=== PATIENT | female | born 1965 | race American Indian/Alaskan Native ===

== ENCOUNTER 2016-07-19 12:33 | Outpatient (CLI) | payer MEDICAID ==
--- NOTE | 2016-07-19 13:44 | Mammography Report ---
Right mammogram: Routine views are compared to her prior study of December 13, 2015. Scattered areas of chunky benign-appearing calcifications are noted. No significant change identified compared to prior study. The overall fibroglandular pattern remains stable. No focal findings. Impression: Stable calcifications. No suspicious findings. Recommendation: Annual bilateral mammogram followup at normal interval in 6 months. BI-RADS CATEGORY: 3 = Probably benign ACR BI-RADS MAMMOGRAPHIC CODES: 0 = Needs additional imaging evaluation; 1 = Negative; 2 = Benign; 3 = Probably benign; 4 = Suspicious; 5 = Malignant; 6 = Known biopsy-proven malignancy COMMENT: 1. Dense breast tissue, i.e., adenosis, fibrocystic changes, etc., may obscure an underlying neoplasm. 2. Approximately 10% of cancers are not detected with mammography. 3. A negative mammography report should not delay biopsy if a clinically suspicious mass is present.
== END 2016-07-19 12:34 | disposition home or self-care (01) ==
LOC: MAMMO 12:33
PROVIDERS: ATTEND Family Medicine
DX: R92.8 Other abnormal and inconclusive findings on diagnostic imaging of breast (principal)
CPT/HCPCS: G0206-RT

== ENCOUNTER 2017-02-19 11:14 | Outpatient (CLI) | payer MEDICAID ==
--- NOTE | 2017-02-19 14:22 | Mammography Report ---
BILATERAL DIGITAL SCREENING MAMMOGRAM with CAD : 02/19/17 11:14:00 CLINICAL: Routine screening. COMPARISON:12/13/15 FINDINGS: The breasts are heterogeneously dense, which may obscure small masses.Bilateral benign calcifications. No mass, architectural distortion or suspicious calcifications. IMPRESSION: No mammographic evidence of malignancy. BI-RADS CATEGORY: 2 -- Benign RECOMMENDATION: Routine mammographic screening in one year.
== END 2017-02-19 11:15 | disposition home or self-care (01) ==
LOC: MAMMO 11:14
PROVIDERS: ATTEND Family Medicine
DX: Z12.31 Encounter for screening mammogram for malignant neoplasm of breast (principal)
CPT/HCPCS: 77067; G0202

== ENCOUNTER 2018-11-22 07:36 | Day surgery (SDC) | payer MEDICAID ==
[2018-11-22] MEDS ORDERED: ECOTRIN PO ONE (08:11)
[2018-11-22] MEDS: NACL 0.9% 500 ML 500 ML IV SCH ×2 (08:59→10:10)
[2018-11-22 09:05] LABS: Basophils % (Auto) 0.4 % (0.0-1.8); Eosinophils # (Auto) 0.2 K/mm3 (0.0-0.4); Eosinophils % (Auto) 2.8 % (0.0-4.3); Hematocrit 36.7 % (30.3-42.9); Hemoglobin 12.4 gm/dl (10.1-14.3); Lymphocytes # (Auto) 2.1 K/mm3 (1.2-5.4); Lymphocytes % (Auto) 35.5 % (13.4-35.0); Mean Corpuscular HGB Conc 34 % (30-34); Mean Corpuscular Volume 93 fl (79-97); Monocytes # (Auto) 0.4 K/mm3 (0.0-0.8); Monocytes % (Auto) 7.2 % (0.0-7.3); Platelet Count 219 K/mm3 (140-440); Red Blood Count 3.96 M/mm3 (3.65-5.03); Red Cell Distribution Width 13.7 % (13.2-15.2)
[2018-11-22 09:10] LABS: INR 1.05 (0.87-1.13); Partial Thromboplastin Time 25.3 Sec. (24.2-36.6)
[2018-11-22 09:18] LABS: BUN/Creatinine Ratio 39; Blood Urea Nitrogen 27 mg/dL (7-17); Calcium 9.1 mg/dL (8.4-10.2); Hemolysis Index 7
[2018-11-22] MEDS ORDERED: CALAN ONE (09:48)
[2018-11-22] MEDS ORDERED: HEPARIN 10,000 UNITS/10 ML ONE (09:48)
[2018-11-22] MEDS ORDERED: HEPARIN/NS 5000 UNIT/500ML(CATH LAB) 1,000 ML IR ONE (09:48)
[2018-11-22] MEDS ORDERED: NITROGLYCERIN SYRINGE 3 ML ONE (09:49)
[2018-11-22] MEDS: VERSED ONE ×2 (10:15→10:18)
[2018-11-22] MEDS: XYLOCAINE 2% INFILTRATI ONE ×2 (10:16→10:19)
[2018-11-22] MEDS: SUBLIMAZE ONE ×2 (10:16→10:18)
[2018-11-22] MEDS ORDERED: NORCO 5/325 PO PRN (10:43)
--- NOTE | 2018-11-22 10:43 | Short Stay Summary ---
Short Stay Documentation Date of service: 11/22/18 - History H&P: obtained from office - Allergies and Medications Current Medications: Allergies No Known Allergies Allergy (Verified 02/17/18 16:39) Home Medications Medication Instructions Recorded Confirmed Last Taken Type Insulin Aspart Prot/Aspart(Nf) 25 unit SQ PRN PRN 07/24/13 11/22/18 11/21/18 History [NovoLOG Mix 70/30 VIAL] 20units Aspirin [Aspirin BABY CHEW TAB] 1 tab PO DAILY 07/28/13 11/22/18 11/22/18 06:30 History Losartan [Cozaar] 100 mg PO QDAY 02/17/18 11/22/18 11/21/18 History 100mg Carvedilol [Coreg] 6.25 mg PO BID #60 tablet 02/20/18 11/22/18 11/21/18 Rx 6.25mg Furosemide [Lasix TAB] 40 mg PO 0600,1800 #60 tablet 02/20/18 11/22/18 11/21/18 Rx 40mg Spironolactone [Aldactone] 25 mg PO QDAY #30 tablet 02/20/18 11/22/18 11/21/18 Rx 25mg Pravastatin [Pravachol] 40 mg PO DAILY 11/22/18 11/22/18 11/21/18 History 40mg Active Medications Sodium Chloride (Nacl 0.9% 500 Ml) 500 mls @ 50 mls/hr IV DIRECT DOUG Stop: 11/22/18 18:59 Last Admin: 11/22/18 10:10 Dose: 50 mls/hr Documented by: - Physical exam General appearance: no acute distress HEENT: Atraumatic Lungs: Clear to auscultation Breasts: deferred Heart: Regular rate Gastrointestinal: normal, normoactive bowel sounds Female Genitourinary: deferred Extremities: no ischemia Neurological: Normal gait - Brief post op/procedure progress note Date of procedure: 11/22/18 Pre-op diagnosis: DCM Post-op diagnosis: same Procedure: LHC and LV gram Anesthesia: MAC Findings: See report Surgeon: CARMELINA OLEA Estimated blood loss: none Pathology: none Condition: stable - Hospital course Hospital course: Uneventful - Disposition Condition at discharge: Good Disposition: DC-[id number] TO HOME OR SELFCARE Short Stay Discharge Plan Activity: advance as tolerated Weight Bearing Status: Partial Weight Bearing Diet: low fat, low cholesterol, low salt, diabetic Follow up with: RON PERSAUD MD [Other] - 7 Days
--- NOTE | 2018-11-22 11:57 | Cardiac Catherization Report ---
LEFT HEART CATH ORDERING PHYSICIAN: Urvashi Waters MD INDICATION FOR PROCEDURE: Cardiomyopathy. PROCEDURES PERFORMED: 1. Selective left and right coronary angiography. 2. Left ventriculography. DESCRIPTION OF PROCEDURE: After obtaining the consent, the patient was draped using sterile technique. A 2% lidocaine was injected into the right wrist. A 6-[place] vascular sheath was inserted into the right radial artery. A 5-[place] multipurpose catheter was used to selectively engage left coronary artery. A 5-[place] JR4 catheter was used to selectively engage the right coronary artery. A 5-[place] JR4 catheter was used to perform a hand injected LV gram. No complications occurred during the procedure. Hemostasis was achieved at the end of the procedure using manual pressure. SPECIMEN REMOVED: None. TOTAL SEDATION ADMINISTERED: A 1 mg of IV Versed and 25 mcg of IV fentanyl. PHYSICIAN-PATIENT [id number] SEDATION START TIME: 10:18 a.m. PHYSICIAN-PATIENT [id number] SEDATION STOP TIME: 10:34 a.m. TOTAL SEDATION TIME: 16 minutes. FINDINGS: HEMODYNAMICS: Aortic pressure 130/86, LV systolic pressure 120 mmHg, LV end-diastolic pressure 12 mmHg. No gradient was noted across the left ventricular outflow tract. CARDIAC STRUCTURES: The left ventricle is normal in size. There is severe global left ventricular hypokinesis. The left ventricular ejection fraction is estimated at 20-25%. CORONARY CIRCULATION: This is a right dominant circulation. The left main is angiographically normal. LAD is angiographically normal. Left circumflex artery is angiographically normal. The right coronary artery is angiographically normal. IMPRESSION: 1. Angiographically normal coronary artery. 2. Severe global left ventricular hypokinesis with a left ventricular ejection fraction estimated between 20% and 25%. 3. LVEDP measured at 12 mmHg. 4. Findings are consistent with nonischemic cardiomyopathy. RECOMMENDATIONS: Continue guideline directed medical therapy and follow up with referring rn acute care. JOB# [id number] EMMY/RICHA
[2018-11-22 13:16] VITALS: BP 126/78
== END 2018-11-22 13:55 | disposition home or self-care (01) ==
LOC: CATHLABREC 07:36
PROVIDERS: ATTEND Internal Medicine
DX: I42.0 Dilated cardiomyopathy (principal); I11.0 Hypertensive heart disease with heart failure; I50.9 Heart failure, unspecified; E11.9 Type 2 diabetes mellitus without complications; Z79.4 Long term (current) use of insulin; Z79.899 Other long term (current) drug therapy; Z79.82 Long term (current) use of aspirin; Z98.891 History of uterine scar from previous surgery; Z98.890 Other specified postprocedural states
CPT/HCPCS: 36415; 80048; 85025; 85610; 85730; 93005; 93010; 93458; 99156; C1894; J1644; J2250; J3010; J7040; Q9967